=== PATIENT | female | born 1960 | race Caucasian/White ===

== ENCOUNTER 2025-09-17 16:40 | Emergency (ER) | payer OTHER ==
[~2025-09-17] VITALS: Ht 175.2 cm; Wt 131.5 kg
[2025-09-17 17:14] LABS: BASO # 0.0 10*3/uL (0.0-0.1); BASO % 0.4 % (0.0-1.0); EOS # 0.2 10*3/uL (0.0-0.4); EOS % 2.7 % (1.0-4.0); MEAN CELL VOLUME 96.2 fl (81.0-99.0); MEAN CORPUSCULAR HGB 31.2 pg (27.0-31.0); MEAN PLATELET VOLUME 10.3 fl (9.6-12.3); MONO # 0.6 10*3/uL (0.1-1.0); MONO % 7.5 % (3.0-9.0); NEUT # 4.1 10*3/uL (2.3-7.9); NEUT % 56.5 % (47.0-73.0); NUCLEATED RED BLOOD CELL 0.0 % (0.0-0.0); NUCLEATED RED BLOOD CELL 0.0 10*3/uL (0.0-0.0); PLATELET COUNT AUTOMATED 186 10*3/uL (130-400); RED CELL DISTRI WIDTH 13.4 % (0-14.5)
[2025-09-17 17:28] LABS: BILIRUBIN Negative (Negative); BLOOD Negative (Negative); CLARITY Clear (Clear); COLOR Yellow (Yellow); KETONE Negative (Negative); LEUKO ESTERASE 2+ (Negative); NITRITE Negative (Negative); PH 6.5 (4.5-8.0); SPECIFIC GRAVITY 1.025 (1.001-1.030); UROBILINOGEN 1.0 E.U./dl (0.0-1.0)
[2025-09-17] MEDS ORDERED: ABILIFY20 MG PO (17:28)
[2025-09-17] MEDS ORDERED: ZYRTEC5 M2 PO (17:31)
[2025-09-17 17:32] LABS: BACTERIA 3+; RBC 0-2 rbc/hpf (0-2); WBC 21-30 wbc/hpf (0-5)
[2025-09-17] MEDS ORDERED: METHYLPHENIDATE PO (17:32)
[2025-09-17 17:33] LABS: BUN 11 mg/dl (9-23)
[2025-09-17] MEDS ORDERED: ROPINIROLE HYDRO1 MG PO (17:33)
[2025-09-17] MEDS ORDERED: METOPROLOL SUCC25 M2 PO (17:33)
[2025-09-17] MEDS ORDERED: Ondansetron4 MG PO (17:34)
[2025-09-17] MEDS ORDERED: ZOCOR20 MG PO (17:35)
[2025-09-17] MEDS ORDERED: VENLAFAXINE75 M1 PO (17:35)
[2025-09-17] MEDS ORDERED: TRAZODONE100 MG PO (17:35)
[2025-09-17] MEDS ORDERED: VENLAFAXINE HY150 M1 PO (17:37)
[2025-09-17] MEDS ORDERED: CEPHALEXIN500 M1 PO (18:08)
== END 2025-09-17 18:29 | disposition home or self-care (01) ==
LOC: ED 16:40
PROVIDERS: Nurse Practitioner Family
DX: N39.0 Urinary tract infection, site not specified (principal); I10 Essential (primary) hypertension; Z88.8 Allergy status to other drugs, medicaments and biological substances